=== PATIENT | female | born 1955 | race Caucasian/White ===

== ENCOUNTER 2018-06-30 12:30 | Outpatient (CLI) | payer BC, SELFPAY ==
[2018-06-30 13:13] LABS: Hemoglobin A1C 6.4 % (4.5-6.2)
[2018-06-30 13:52] LABS: ALT 27 U/L (12-78); AST 20 U/L (15-37); Albumin 3.5 g/dL (3.4-5.0); Alkaline Phosphatase 104 U/L (46-116); Anion Gap 7.7 mmol/L (3-11); BUN 15 mg/dL (7-18); Bilirubin, Total 0.5 mg/dL (0.2-1.0); CO2 30.3 mmol/L (21.0-32.0); CREATININE 0.94 mg/dL (0.55-1.02); Calcium 8.6 mg/dL (8.5-10.1); Chloride 104 mmol/L (98-107); Cholesterol 189 mg/dL (50-200); Estimated GFR 59.95 (mL/min/1.73m2); Glucose 105 mg/dL (70-100); HDL Cholesterol 43 mg/dL (40-60); LDL CHOLESTEROL 133 mg/dL (<100); Potassium 3.6 mmol/L (3.5-5.1); Sodium 142 mmol/L (136-145); Total Protein 7.6 g/dL (6.4-8.2); Triglyceride 133 mg/dL (30-150)
== END 2018-06-30 12:50 ==
PROVIDERS: PCP Nurse Practitioner; Visit Provider Nurse Practitioner
DX: I10 Essential (primary) hypertension (principal); R78.5 Finding of other psychotropic drug in blood; R73.01 Impaired fasting glucose
CPT/HCPCS: 36415; 80053; 80061; 83721; 83036

== ENCOUNTER 2019-02-17 01:01 | Outpatient (CLI) | payer MEDICARE, BC, SELFPAY ==
--- NOTE | 2019-02-17 08:00 | ROE_ITS ---
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 Intermittent for several months. No heavy flow. She has been diagnosed with postmenopausal bleeding in the past. Distant hx of D&C @ [facility] by Dr. Rivas GynOnc - benign findings. 2017 Office Endosee procedure: endometrial polyps with benign path. No Rx. Pap Hx. HPV + HR. Findings: Intracavitary filling defect measuring 1.8 x 0.8 cm. Clinical impression is that of an single endometrial polyp. Procedure Description: Patient was evaluated in diagnostic imaging. Transvaginal ultrasound was performed and measurements of the uterus and pelvic structures were obtained. A bivalve speculum was placed in the patient's vagina and cervix cleansed with Betadine. A sonohysterogram catheter was inserted and the balloon at the tip of the device was inflated for her to remain in place. Transvaginal ultrasound was then placed into the vagina and under direct visualization 20 cc of sterile normal saline were instilled into the uterine cavity and a 1.8 x 0.8 cm endometrial polyp was observed of the uterine fundus. No other intracavitary filling defects were appreciated. The transvaginal ultrasound was removed and a single-tooth tenaculum applied to the anterior lip of the cervix. A endometrial biopsy Pipelle was inserted into the uterine cavity through the vagina and all 4 quadrants of the uterine cavity were sequentially curetted. Small amount of tissue was returned. The tenaculum was removed from the anterior lip of the cervix and tenaculum site was noted to be hemostatic all instruments were removed and the patient vagina. She tolerated the procedure well. cc:
--- NOTE | 2019-02-17 14:57 | DI.US_ITS ---
SYMPTOM/DIAGNOSIS: POSTMENOPAUSAL BLEEDING, N95.0 ULTRASOUND SONOHYSTEROGRAM: Sonography was utilized by Dr. Louisa Arita of the Dept of [employer] during the performance of a sonohysterogram. A 1.8 by 0.8 cm. endometrial polyp is noted on the examination. Please refer to the procedure report for complete details.
--- NOTE | 2019-02-17 15:30 | ENDOMET_PTH ---
PATIENT: Varsha Lizama LOC: [facility] U#:[id number] AGE/SX: 64/F ROOM: RE02/17/[address]: Louisa Arita : 1955 BED: DIS: 02/17/2019 SPEC #: [id number] RECD: 02/17/19 18:10 STATUS: VIVIANA REQ #: [id number] THOMAS: 02/17/19 15:[address]: Louisa Arita DEPT: Surgical Specimen RECD BY: Angely Balderas ENTERED: 02/17/19 18:11 SP TYPE: Endomet OT DR: Jaclyn Tejeda APRN Tissues: 1 - ENDOMETRIUM BX/ESTEFANIAETTE Procedures: GROSS AND MICRO LEVEL 4 Comments: [id number]
== END 2019-02-17 01:21 ==
PROVIDERS: PCP Nurse Practitioner; Visit Provider Obstetrics & Gynecology Gynecology
DX: N95.0 Postmenopausal bleeding (principal); N84.0 Polyp of corpus uteri
CPT/HCPCS: 58100; 76830; 58340; 76998; 88305; 76831; 76942

== ENCOUNTER 2019-03-27 10:21 | Outpatient (CLI) | payer MEDICARE, BC, SELFPAY ==
[2019-03-27 11:22] LABS: HCT 42.6 % (36.0-46.0); Mean Corp. HGB Concentration 32.9 g/dL (32.0-36.0); Mean Corpuscular Hemoglobin 30.4 pg (27.0-33.0); Mean Corpuscular Volume 92.4 fL (80-95); Mean Platelet Volume 9.6 fL (8.0-11.0); Platelet Count 243 x1000/uL (130-400); RBC 4.61 m/cumm (4.00-5.20); RBC Distribution Width 13.6 % (11.7-14.6); White Blood Cell Count 5.07 k/cumm (4.4-10.8)
[2019-03-27 12:02] LABS: ALT 29 U/L (12-78); AST 17 U/L (15-37); Albumin 3.6 g/dL (3.4-5.0); Alkaline Phosphatase 102 U/L (46-116); Anion Gap 8.4 mmol/L (3-11); BUN 17 mg/dL (7-18); Bilirubin, Total 0.4 mg/dL (0.2-1.0); CO2 30.6 mmol/L (21.0-32.0); CREATININE 1.01 mg/dL (0.55-1.02); Calcium 9.1 mg/dL (8.5-10.1); Calculated LDL 131; Chloride 103 mmol/L (98-107); Cholesterol 195 mg/dL (50-200); Estimated GFR 55.01 (mL/min/1.73m2); Glucose 97 mg/dL (70-100); HDL Cholesterol 41 mg/dL (40-60); Potassium 3.7 mmol/L (3.5-5.1); Sodium 142 mmol/L (136-145); Total Protein 7.7 g/dL (6.4-8.2); Triglyceride 119 mg/dL (30-150)
== END 2019-03-27 10:41 ==
PROVIDERS: PCP Nurse Practitioner; Visit Provider Nurse Practitioner
DX: E11.9 Type 2 diabetes mellitus without complications (principal); E78.5 Hyperlipidemia, unspecified; I10 Essential (primary) hypertension
CPT/HCPCS: 36415; 80053; 80061; 83721; 85027; 82043; 82570

== ENCOUNTER 2019-08-12 12:43 | Outpatient (CLI) | payer MEDICARE, BC, SELFPAY ==
[2019-08-12 14:21] LABS: Anion Gap 8.7 mmol/L (3-11); BUN 20 mg/dL (7-18); CO2 31.3 mmol/L (21.0-32.0); CREATININE 0.87 mg/dL (0.55-1.02); Calcium 9.5 mg/dL (8.5-10.1); Chloride 103 mmol/L (98-107); Glucose 83 mg/dL (70-100); Potassium 3.6 mmol/L (3.5-5.1); Sodium 143 mmol/L (136-145)
== END 2019-08-12 13:03 ==
PROVIDERS: PCP Nurse Practitioner; Visit Provider Nurse Practitioner
DX: I10 Essential (primary) hypertension (principal)
CPT/HCPCS: 36415; 80048

== ENCOUNTER 2019-12-28 09:28 | Outpatient (CLI) | payer MEDICARE, BC, SELFPAY ==
--- NOTE | 2019-12-28 08:30 | DI.RAD_ITS ---
EXAM: XR KNEE LT 3V AP,LAT,ALONSO CLINICAL HISTORY: KNEE PAIN. TECHNIQUE: 2D digital imaging was performed. COMPARISON: No exams were available for comparison FINDINGS: BONES: No acute fracture is present. No bony destructive lesion is seen. JOINTS: The knee is normally aligned. No joint effusion is seen. Mild periarticular spurring is seen at the posterior patella and the medial femoral tibial joint space. There is moderate narrowing of t he medial femoral tibial joint. SOFT TISSUE: Normal. IMPRESSION: Mild degenerative changes of the left knee. DATA REPOSITORY: RADIATION DOSE DELIVERED:
== END 2019-12-28 09:48 ==
PROVIDERS: PCP Nurse Practitioner; Referring Provider Nurse Practitioner; Visit Provider Student in an Organized Health Care Education/Training Program
DX: M25.562 Pain in left knee (principal); M17.12 Unilateral primary osteoarthritis, left knee; I10 Essential (primary) hypertension
CPT/HCPCS: 20610; 73562; 99214; J1040

== ENCOUNTER 2020-05-04 02:25 | Outpatient (CLI) | payer MEDICARE, BC, SELFPAY ==
--- NOTE | 2020-05-04 08:45 | DI.MAMMO_ITS ---
EXAM: MG MAMMO SCREENING CLINICAL HISTORY: screening,Z12.39 TECHNIQUE: Bilateral full field digital CC and MLO mammographic images were obtained with 3D tomosyn thesis and utilizing computer aided detection (CAD). COMPARISON: Available for comparison. FINDINGS: Masses/Architectural Distortion: None seen. Microcalcifications: No suspicious pleomorphic-type are seen. Skin Thickening/Nipple Retraction: None. IMPRESSION: 1. No significant interval change with no specific features of malignancy noted. 2. Unless there is more urgent need, screening mammography is recommended, as per [place] [employer] guidelines. BI-RADS Category 1 - Negative Breast Density - Category B - Scattered areas of fibroglandular density A negative radiographic report should not delay biopsy if a dominant or clinically suspicious mass is present. Up to ten percent of cancers are not identified on mammography. A negative report may reinforce clinical impression. Adenosis and dense breasts may obscure an underlying neoplasm. False positive reports average 6 to 10%. Patient will receive a letter notifying them of these results.
== END 2020-05-04 02:45 ==
PROVIDERS: PCP Nurse Practitioner; Visit Provider Nurse Practitioner
DX: Z12.31 Encounter for screening mammogram for malignant neoplasm of breast (principal)
CPT/HCPCS: 77063; 77067

== ENCOUNTER → 2020-05-06 09:28 | Outpatient (BNVA) | payer MEDICARE, BC, SELFPAY | PROVIDERS: PCP Nurse Practitioner; Referring Provider Nurse Practitioner; Visit Provider Student in an Organized Health Care Education/Training Program | DX: M17.12 Unilateral primary osteoarthritis, left knee; M25.562 Pain in left knee; Z98.890 Other specified postprocedural states; I10 Essential (primary) hypertension | CPT/HCPCS: 99213 ==

== ENCOUNTER 2020-08-11 17:31 | Outpatient (REF) | payer MEDICARE, BC, SELFPAY ==
--- NOTE | 2020-08-11 15:00 | ENDOMET_PTH ---
PATIENT: Varsha Lizama LOC: [facility] U#:[id number] AGE/SX: 65/F ROOM: RE08/11/[address]: Louisa Arita : 1955 BED: DIS: 08/11/2020 SPEC #: [id number] RECD: 08/11/20 17:39 STATUS: VIVIANA REQ #: [id number] THOMAS: 08/11/20 15:[address]: Louisa Arita DEPT: Surgical Specimen RECD BY: Angely Balderas ENTERED: 08/11/20 17:40 SP TYPE: Endomet OTHR DR: Jaclyn Tejeda APRN Tissues: 1 - ENDOMETRIUM BX/CURRETTE Procedures: GROSS AND MICRO LEVEL 4 Comments: [id number] ([facility]#)
== END 2020-08-11 17:51 ==
LOC: LBN 17:31
PROVIDERS: PCP Nurse Practitioner; Visit Provider Obstetrics & Gynecology Gynecology
DX: N95.0 Postmenopausal bleeding (principal); N85.01 Benign endometrial hyperplasia
CPT/HCPCS: 88305

== ENCOUNTER 2020-08-23 02:31 | Outpatient (CLI) | payer MEDICARE, BC, SELFPAY ==
[2020-08-23 10:08] LABS: ALT 26 U/L (14-59); AST 17 U/L (15-37); Albumin 3.9 g/dL (3.4-5.0); Alkaline Phosphatase 106 U/L (46-116); Anion Gap 6.3 mmol/L (3-11); BUN 21 mg/dL (7-18); Bilirubin, Total 0.5 mg/dL (0.2-1.0); CO2 33.7 mmol/L (21.0-32.0); Calcium 8.9 mg/dL (8.5-10.1); Calculated LDL 134 mg/dL (<100); Chloride 101 mmol/L (98-107); Cholesterol 206 mg/dL (<200); Glucose 123 mg/dL (74-106); HDL Cholesterol 47 mg/dL (40-60); Potassium 3.2 mmol/L (3.5-5.1); Sodium 141 mmol/L (136-145); Total Protein 7.9 g/dL (6.4-8.2); Triglyceride 127 mg/dL (<150)
== END 2020-08-23 02:51 ==
PROVIDERS: PCP Nurse Practitioner; Visit Provider Nurse Practitioner
DX: E78.5 Hyperlipidemia, unspecified (principal); I10 Essential (primary) hypertension
CPT/HCPCS: 36415; 80053; 80061

== ENCOUNTER 2020-10-25 02:22 | Outpatient (CLI) | payer MEDICARE, BC, SELFPAY ==
[2020-10-25 09:38] LABS: Hemoglobin A1C 6.6 % (<5.7)
[2020-10-25 09:59] LABS: Potassium 3.9 mmol/L (3.5-5.1)
== END 2020-10-25 02:42 ==
PROVIDERS: PCP Nurse Practitioner; Visit Provider Nurse Practitioner
DX: R73.03 Prediabetes (principal); E87.6 Hypokalemia
CPT/HCPCS: 36415; 83036; 84132

== ENCOUNTER 2021-01-30 02:43 | Outpatient (CLI) | payer MEDICARE, BC, SELFPAY ==
[2021-01-30 11:14] LABS: HCT 42.5 % (36.0-46.0); HGB 13.9 g/dL (11.2-15.7); MCH 29.4 pg (27.0-33.0); MCHC 32.7 % (32.0-36.0); MPV 9.6 fL (8.0-11.0); Platelet Count 260 10^3/uL (130-400); RBC 4.72 10^6/uL (3.93-5.22); RDW 12.9 % (11.7-14.6); RDW-SD 42.6 fL; WBC 5.79 10^3/uL (4.4-10.8)
[2021-01-30 11:31] LABS: Source Nasal/Nares
[2021-01-30 11:49] LABS: ALT 34 U/L (14-59); AST 21 U/L (15-37); Albumin 3.9 g/dL (3.4-5.0); Alkaline Phosphatase 109 U/L (46-116); Anion Gap 7.8 mmol/L (3-11); BUN 24 mg/dL (7-18); Bilirubin, Total 0.4 mg/dL (0.2-1.0); CO2 31.2 mmol/L (21.0-32.0); Calcium 9.7 mg/dL (8.5-10.1); Chloride 103 mmol/L (98-107); Glucose 132 mg/dL (74-106); Potassium 3.5 mmol/L (3.5-5.1); Sodium 142 mmol/L (136-145); Total Protein 8.1 g/dL (6.4-8.2)
[2021-01-30 18:19] LABS: COVID-19 PCR Negative (Negative)
== END 2021-01-30 02:44 | disposition home or self-care (01) ==
LOC: LBO 02:43
PROVIDERS: PCP Nurse Practitioner; Visit Provider Obstetrics & Gynecology Gynecology
DX: N95.0 Postmenopausal bleeding (principal); Z20.822 Contact with and (suspected) exposure to COVID-19; Z01.818 Encounter for other preprocedural examination; Z01.812 Encounter for preprocedural laboratory examination
CPT/HCPCS: 36415; 80053; 85027; 86850; 86900; 86901; 87635

== ENCOUNTER 2021-02-01 12:27 | Observation (INO) | payer MEDICARE, BC, SELFPAY ==
[2021-02-01] VITALS (19 sets, daily range): BP systolic 105–140; BP diastolic 40–79; PULSE 50–85; RESP 11–24; TEMP 36.2–36.6; O2SAT 91–99
[2021-02-01] MEDS: Lactated Ringers 1,000 ML 125 ML IV ×3 (07:58→22:22)
--- NOTE | 2021-02-01 09:14 | DSU.FORM ---
02/01/21 Patient belongings pocketbook, phone, clothing, shoes, watch, earrings, glasses labeled and in bags. Patient CPAP labeled and checked by RT. All patient belongings brought to floor by VP OF MARKETING.
[2021-02-01] MEDS: ceFAZolin 2 GM/50 ML BAG IVPB (09:28)
--- NOTE | 2021-02-01 11:29 | UTER_PTH ---
PATIENT: Varsha Lizama LOC: [facility] U#:[id number] AGE/SX: 66/F ROOM: OBS.306 RE02/01/[address]: Louisa Arita : 1955 BED: A DIS: 02/02/2021 SPEC #: [id number] RECD: 02/01/21 12:59 STATUS: VIVIANA REQ #: [id number] THOMAS: 02/01/21 11:[address]: Louisa Arita DEPT: Surgical Specimen RECD BY: Angely Balderas ENTERED: 02/01/21 13:00 SP TYPE: UTER OTHR DR: Jaclyn Tejeda APRN Tissues: 1 - UTERUS W OR W/O OVARIES(NOT TUMOR/PROLAPSE) Procedures: GROSS AND MICRO LEVEL 5 DECALCIFICATION Comments: [id number]
[2021-02-01] MEDS: Cellulose,Oxidized 4X8 1 PACKET MC (11:57)
[2021-02-01] MEDS: Bupivacaine 0.25% Pres-Free 30 ML VIAL (12:19)
[2021-02-01] MEDS: HYDROmorphone 2 MG/ML VIAL IVP ×3 (13:42→14:08)
--- NOTE | 2021-02-01 16:08 | NUR.NOTE ---
Pt brought to Center via bed, on room air. IV running with LR at 125 mL/hr. Pt drowsy but awake and communicative. Vitals WNL. Nursing Note:
--- NOTE | 2021-02-01 17:43 | RESPIRATORY ---
RT checked out pt's device, looks to be in good, clean working condition. Pt's own DreamStation Auto-titrate CPAP Max 16 / Min 11 cmH2O FiO2: 21% Nasal Mask: Small DME: [facility]
[2021-02-01] MEDS: Ketorolac 30 MG/ML VIAL IVP ×2 (18:19→23:48)
[2021-02-01] MEDS: Docusate Sodium 100 MG CAP PO (20:14)
[2021-02-01] MEDS: Normal Saline Flush 10 ML SYR IV (23:48)
[2021-02-02] MEDS: Lactated Ringers 1,000 ML 125 ML IV (05:40)
[2021-02-02] MEDS: Ketorolac 30 MG/ML VIAL IVP (05:41)
[2021-02-02] MEDS: Normal Saline Flush 10 ML SYR IV (05:41)
[2021-02-02 05:50] VITALS: BP 116/74; PULSE 55; RESP 14; TEMP 36.5; O2SAT 96
[2021-02-02 07:09] LABS: HCT 35.5 % (36.0-46.0); HGB 11.6 g/dL (11.2-15.7); MCH 29.5 pg (27.0-33.0); MCHC 32.7 % (32.0-36.0); MCV 90.3 fL (80-95); MPV 9.7 fL (8.0-11.0); Platelet Count 219 10^3/uL (130-400); RBC 3.93 10^6/uL (3.93-5.22); RDW 12.8 % (11.7-14.6); RDW-SD 42.4 fL; WBC 11.52 10^3/uL (4.4-10.8)
[2021-02-02 07:18] LABS: BUN 26 mg/dL (7-18); CREATININE 1.1 mg/dL (0.55-1.02); Calcium 8.4 mg/dL (8.5-10.1); Chloride 103 mmol/L (98-107); Estimated GFR 49.54 (mL/min/1.73m2); Glucose 148 mg/dL (74-106); Potassium 3.2 mmol/L (3.5-5.1); Sodium 139 mmol/L (136-145)
[2021-02-02 08:00] VITALS: BP 116/58; PULSE 57; RESP 16; TEMP 36.8; O2SAT 97
[2021-02-02] MEDS: Omeprazole 20 MG CAPCR PO (08:01)
[2021-02-02] MEDS: Docusate Sodium 100 MG CAP PO (08:13)
[2021-02-02] MEDS: Losartan 50 MG TAB 100 MG PO (08:14)
[2021-02-02] MEDS: Glucosamine/Chondroitin CAP 1 CAP PO (08:16)
[2021-02-02] MEDS: Atenolol 50 MG TAB PO (08:17)
--- NOTE | 2021-02-02 11:33 | DSE_ITS ---
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 At her last visit on 08/11/21 an endometrial bx was performed and the pathology returned with simple hyperplasia w/o atypia. Decision was made to proceed with definitive therapy. She was admitted the morning of surgery underwent the above-stated procedure without complications and was discharged home on postop day #1. She was voiding spontaneously, tolerating a regular diet and her pain was well controlled with NSAIDs at the time of discharge. She was given discharge instructions regarding activity level and the plan for follow-up in the office in approximately 2 weeks to review pathology and inspect incisions. Final pathology is currently pending. Home Meds and New Rx's Prescriptions: No Action turmeric 400 mg capsule 400 mg PO DAILY RF: 0 sumatriptan succinate 50 mg tablet 50 mg PO DAILY PRN (Reason: migraine headache) Qty: 9 RF: 12 multivitamin [Daily Multi-Vitamin] 1 EACH tablet 1 ea PO DIRECTED RF: 0 calcium-vitamin D3-vitamin K 1 EACH tablet,chewable 1 ea PO DAILY RF: 0 glucosam-chondr msm6-manganese 1 EACH capsule 1 ea PO DAILY RF: 0 ibuprofen 600 mg tablet 600 mg PO Q6H PRNRF: 0 indapamide 2.5 mg tablet 5 mg PO QAM Qty: 180 RF: 3 atenolol 50 mg tablet 50 mg PO DAILY Qty: 90 RF: 3 omeprazole 20 mg capsule,delayed release(DR/EC) 20 mg PO DAILY Qty: 90 RF: 3 losartan 100 mg tablet 100 mg PO DAILY Qty: 90 RF: 3 aspirin [Aspir-81] 81 mg Tablet,Delayed Release (Dr/Ec) 81 mg PO DAILY RF: 0 Discharge Instructions Stand Alone Forms: DSU Post Gynecology Surgery Activity:: Activity as Tolerated Equipment/Supplies:: No Equipment Needed Diet:: As Tolerated Discharge Orders Discharge Orders: Discharge Order (Routine); Ordered 02/02/21 Ordered By: Louisa Arita DS: Summary Time Spent with Patient providing and/or coordinating discharge services: Less than 30 minutes Status at Discharge Functional status at discharge: independent ambulation Overall status at discharge: patient is progressing back to baseline Mental Status: mental status grossly normal Speech and Movement: speech and movement normal Mood: congruent mood Affect: normal affect Exam Narrative Exam Narrative: Comfortable overnight. Used her CPAP to treat her chronic sleep apnea. Feels comfortable going home. No desire for medications other than NSAIDs. Minimal output on peripads. Const General: cooperative Nutritional Appearance: obese Orientation: alert, awake and oriented x3 Resp Effort & Inspection: normal respiratory effort Auscultation: clear to auscultation bilaterally Cardio Rate: regular rate Rhythm: regular rhythm GI Inspection: no abdominal wall ecchymosis and incision (Trocar sites clean dry and intact) Palpation: soft and no masses General: deferred Skin General skin exam: no rashes or lesions noted Extrem General: normal to inspection Psych Appearance: grossly normal Mental Status: mental status grossly normal Speech and Movement: speech and movement normal Mood: congruent mood Affect: normal affect DS: Data Vitals/I&O Vitals and I&O: Vital Signs Temperature 98.2 F 02/02/21 08:00 Temperature Source Oral 02/02/21 08:00 Pulse 57 L 02/02/21 08:00 Pulse Rhythm Regular 02/02/21 08:00 Respiratory Rate 16 02/02/21 08:00 Respiratory Effort Non-Labored 02/02/21 08:00 Respiratory Depth Normal 02/02/21 08:00 Respiratory Pattern Normal 02/02/21 08:00 Blood Pressure 116/58 L 02/02/21 08:00 Pulse Oximetry 97 02/02/21 08:00 Respiratory End-tidal CO2 51 02/01/21 14:17 Oxygen Delivery Method Room Air 02/02/21 08:00 Oxygen Flow Rate 0 02/02/21 08:00 Fraction of Inspired Oxygen (FIO2) 21 02/01/21 17:40 Pain Level 4 02/02/21 05:50 Comment 02/02/21 05:50 Intake & Output 02/01/21 02/01/21 02/02/21 11:59 23:59 11:59 Intake Total 50 / 2707.917 2657.917 / 2707.917 1212.5 / 1212.5 Output Total 900 / 900 700 / 700 Balance 50 / 1359.569 4332.917 / 1807.917 512.5 / 512.5 Weight 247 lb 9.6 oz Intake: IV 50 / 2056.917 2007.917 / 2056.917 912.5 / 912.5 Oral 650 / 650 300 / 300 Output: Urine 900 / 900 700 / 700 Other: Urine Color Pale Yellow Green Yellow Green Urine Appearance Clear Clear Urine Odor None None Comment 1st void after babcock removal. Emesis Description None Voiding Methods Indwelling Catheter Indwelling Catheter Data Completed and Pending Labs on day of discharge: Labs from last 24 hours 02/02/21 02/02/21 06:50 06:50 WBC 11.52 H RBC 3.93 Hgb 11.6 D Hct 35.5 L MCV 90.3 MCH 29.5 MCHC 32.7 RDW 12.8 Plt Count 219 MPV 9.7 Sodium 139 Potassium 3.2 L Chloride 103 Carbon Dioxide 30.0 Anion Gap 6.0 BUN 26 H Creatinine 1.1 H Estimated GFR/1.73 m2 49.54 Glucose 148 H Calcium 8.4 L PFSH Medical History Achrochordon Left lateral neck. 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 10/20/18 Dr Wright Kidney stone (03/26/12) Migraine, unspecified, not intractable, without status migrainosus (05/13/13) Obstructive sleep apnea (adult) (pediatric) (03/04/13) Dr. Rebollar CPAP Other and unspecified hyperlipidemia (05/13/13) PCEq risk 6% Post-menopausal bleeding (08/30/17) hsitory of PMB, EM polyps, s/p D&C at [facility] by Dr Menendez. 2017 EMBx with KK. Benign. Surgical History (Updated 02/02/21 @ 11:34 by Louisa Arita MD) Colonoscopy - MAC (05/13/17) History of arthroscopic knee surgery History of surgery D&C S/P BSO (status post bilateral salpingo-oophorectomy) S/P laparoscopic assisted vaginal hysterectomy (LAVH) Family History Mother , heart failure at age 83. Heart disease Neoplasm kidney Father No problems noted. Sister No problems noted. Brother No problems noted. Social History Smoking/Tobacco Use Status: Never Smoking risk assessment performed?: Yes Alcohol Intake: current Alcohol Intake frequency: a few times a month Alcohol type: beer and wine Drug use: Never Substance use type: does not use Caregiver/Support person: Yes (in laws and her mom ) Household members: spouse and other Details: [employer]ser[employer] Housing: house Number of Children: 3 Communication Needs: Corrective Lenses current occupation: works departmental buyer - early education Current gender identity: female What type of physical activity do you participate in: bicycling Duration: 30-45 minutes/day Frequency: daily Seatbelt use: always Helmet use: Yes Drive intox or ride w/intox local company intermodal truck driver: No Water heater temp set <120 deg: Yes Working smoke detector in home: Yes Fire extinguisher in home: Yes Carbon monox detector in home: Yes Firearms in home: Yes Firearms unloaded and locked: Yes Do you feel safe at home: Yes Do you feel safe in your relationship?: Yes Victim of physical abuse: No Victim of emotional abuse: No Victim of sexual abuse: No History History 3 Para 2 Hx # Term Pregnancies 2 Multiple births Hx # Pregnancies Ectopic pregnancies AB induced Hx Number of Living Children 2 AB spontaneous
--- NOTE | 2021-02-02 12:13 | ROE_ITS ---
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 At her last visit on 08/11/21 an endometrial bx was performed and the pathology returned with simple hyperplasia w/o atypia. It was after that bx that I recommended definitive Rx in the form of a LAVH, BSO with bladder cystoscopy. Findings: Normal adnexa bilaterally cluster of calcifications in proximity to the insertion of the left uterine vessels normal upper abdomen. Procedure Description: Patient was taken to the operating room where she was placed in the dorsal supine position and general endotracheal anesthesia was administered without difficulty. She was then placed in the dorsal lithotomy position in [facility] stirrups with SCDs in place. After being prepped and draped in the usual sterile fashion a surgical timeout was performed. Flynn catheter was placed to gravity drainage. A bivalve speculum was placed in the vagina the anterior lip of the cervix was grasped with a single-tooth tenaculum. A Katheryn uterine manipulator was successfully inserted into the uterine cavity, the catheter bulb inflated with 8 cc of normal saline and the device left in place. Attention was then turned to the patient's abdomen. She received 2 g of Ancef prior to skin incision. The umbilical fold was infiltrated with quarter percent Marcaine without epinephrine. A scalpel was then used to make a 12mm vertical skin incision in the umbilical fold. Two penetrating towel clips were used to tent up the skin and through the periumbilical incision a Veres needle was introduced into the abdomen with carbon dioxide as the distention gas. Intra-abdominal placement confirmed by a drop in the intra-abdominal pressure. Once a pneumoperitoneum was established a 12 mm Visiport was placed under direct visualization and intra-abdominal placement confirmed by use of the laparoscope. Patient was then placed in Trendelenburg position. At two sites approximately 6 cm diagonally from the umbilical incision the skin was infiltrated with quarter percent Marcaine without epinephrine, incised with a scalpel and two 5 mm lower ports were placed under direct visualization. After careful inspection of the pelvis a LigaSure electrocautery device was used to clamp, cauterize and transect the suspensory ligament of the left ovary. The left round ligament and broad ligament were then clamped, cauterized and transected to the level of the lower uterine segment. We are unable to detach the area of calcification from the serosal surface of the uterus. The vesico- uterine peritoneum was incised and the the from the lower uterine segment and mobilized off of the body of the cervix. The pedicles of the suspensory, round and broad ligaments were inspected and noted to be hemostatic. On the contralateral side the right suspensory, round, and broad ligament were sequentially clamped, cauterized and transected using the Ligasure device to the level of the insertion of the uterine artery. The remaining the vesicouterine peritoneum was incised across the lower uterine segment and the bladder flap created using the Ligasure device and gently counter traction. All pedicles were inspected and noted to be hemostatic. Decision was made to proceed with the vaginal portion of the case. Laparoscopic instruments were removed from the ports , the pneumoperitoneum was reduced, and the was abdomen covered with sterile drape. A weighted vaginal speculum was placed in the vagina and the anterior and posterior lips of the cervix were grasped with Layton clamps. A solution of 1% lidocaine with dilute epinephrine was used to infiltrate the body of the cervix in a circumferential fashion followed by an incision of the cervical epithelium with Bovie electrocautery. The posterior cul-de-sac was entered sharply and through the this incision a right angle retractor was placed. The left and right uterosacral ligament complexes were identified clamped, transected and suture-ligated and the suture held long. The vesicouterine fascia was identified and the anterior cul-de-sac bluntly sharply. Through this incision a curved right angled retractor was inserted and used to retract the bladder away from the operative field. The remaining right and left broad ligament attatchments were sequentially clamped, cauterized, and transected and the specimen was passed off of the operative field. The vaginal cuff was reapproximated in a vertical fashion with a running suture of 0 Vicryl. Instruments removed from the vagina and attention was again turned to the abdomen where a pneumoperitoneum was reestablished and the pelvis inspected using the laparoscope. The vaginal cuff was intact and was hemostatic as were the round ligament and broad ligament pedicles. The instruments were removed from the port sites, the pneumoperitoneum reduced and the ports removed. The fascia of the periumbilical skin incision was closed with interrupted suture of 0 Vicryl. The skin of all port site incisions were reapproximated with a subcuticular closure of 4-0 Vicry and and covered with skin glue. A cystoscopy was performed with both ureteral jets patent with a brisk reflux of urine from each. The bladder was inspected and no evidence of sutures were present. Flynn catheter was reinserted to gravity drainage and the patient was placed in the dorsal supine position, awakened, extubated, and transported recovery area in stable condition. All sponge lap needle counts correct x2.
== END 2021-02-02 12:10 | disposition home or self-care (01) ==
LOC: OBS 15:59
PROVIDERS: Admitting Provider Obstetrics & Gynecology Gynecology; PCP Nurse Practitioner; Visit Provider Obstetrics & Gynecology Gynecology
PROC: 0UT9FZZ Resection of Uterus, Via Natural or Artificial Opening With Percutaneous Endoscopic Assistance (ICD-10-PCS; CPT 58552; principal; 2021-02-01 08:45)
DX: N95.0 Postmenopausal bleeding (principal); N84.0 Polyp of corpus uteri; N85.01 Benign endometrial hyperplasia; D39.0 Neoplasm of uncertain behavior of uterus; N83.8 Other noninflammatory disorders of ovary, fallopian tube and broad ligament; I10 Essential (primary) hypertension; E78.00 Pure hypercholesterolemia, unspecified; K21.9 Gastro-esophageal reflux disease without esophagitis; G47.33 Obstructive sleep apnea (adult) (pediatric)
CPT/HCPCS: 58552; 52000; 36415; 80048; 85027; NC; 88307; 88311; J0690; J1100; J1885; J2001; J2250; J2405; J2704; J3010

== ENCOUNTER 2021-09-27 01:37 | Outpatient (CLI) | payer MEDICARE, BC, SELFPAY ==
[2021-09-27 11:00] LABS: Anion Gap 9.4 mmol/L (3-11); BUN 19 mg/dL (7-18); CO2 28.6 mmol/L (21.0-32.0); CREATININE 0.9 mg/dL (0.55-1.02); Calcium 9.1 mg/dL (8.5-10.1); Calculated LDL 126 mg/dL (<100); Chloride 101 mmol/L (98-107); Cholesterol 197 mg/dL (<200); Glucose 161 mg/dL (74-106); HDL Cholesterol 46 mg/dL (40-60); Potassium 3.6 mmol/L (3.5-5.1); Sodium 139 mmol/L (136-145); Triglyceride 125 mg/dL (<150)
== END 2021-09-27 01:38 | disposition home or self-care (01) ==
LOC: LBO 01:37
PROVIDERS: PCP Nurse Practitioner; Visit Provider Nurse Practitioner
DX: E78.5 Hyperlipidemia, unspecified (principal); R79.89 Other specified abnormal findings of blood chemistry
CPT/HCPCS: 36415; 80048; 80061

== ENCOUNTER 2022-03-23 11:35 | Outpatient (CLI) | payer MEDICARE, SELFPAY ==
--- NOTE | 2022-03-23 11:00 | DI.RAD_ITS ---
Exam(s) XR KNEE LT 2V AP,LAT XR STANDING ALIGNMENT EXAM: XR STANDING ALIGNMENT and XR knee LT two view CLINICAL HISTORY: eval alignment for knee replacement. TECHNIQUE: 2D digital imaging was performed. Six views were obtained. COMPARISON: CR XR KNEE LT 3V AP,LAT,ALONSO from 12/28/2019 FINDINGS: BONES: No acute fracture is present. No bony destructive lesion is seen. In the left knee, there is m oderate narrowing of the medial femoral tibial joint space. Mild tricompartment periarticular spurri ng is present. No joint effusion is seen. The hips are well maintained. The right hip shows modera te narrowing and spurring in the medial femoral tibial joint. The ankles are well maintained. No si gnificant leg length discrepancy is present. SOFT TISSUE: Normal. IMPRESSION: Osteoarthritis of the knees, left greater than right. DATA REPOSITORY: RADIATION DOSE DELIVERED:
== END 2022-03-23 11:36 | disposition home or self-care (01) ==
LOC: DIORS 11:35
PROVIDERS: PCP Nurse Practitioner; Referring Provider Nurse Practitioner; Visit Provider Student in an Organized Health Care Education/Training Program
DX: M17.12 Unilateral primary osteoarthritis, left knee (principal)
CPT/HCPCS: 99214; 73560; 77073

== ENCOUNTER 2022-04-10 15:59 | Outpatient (CLI) | payer MEDICARE, SELFPAY ==
--- NOTE | 2022-04-10 15:00 | DI.RAD_ITS ---
Exam(s) XR KNEE LT 1V EXAM: XR KNEE LT 1V CLINICAL HISTORY: LEFT KNEE F/U. TECHNIQUE: 2D digital imaging was performed of the left knee. One images were obtained. Merchant, views were obtained. COMPARISON: CR XR KNEE LT 2V AP,LAT from 03/23/2022 FINDINGS: BONES: There is normal alignment of the patella on the single view. Mild spurring is seen about the patellofemoral joint. No bony destructive lesion is seen. SOFT TISSUE: Normal. IMPRESSION: Limited examination of the knee shows no acute abnormality. DATA REPOSITORY: RADIATION DOSE DELIVERED:
== END 2022-04-10 16:00 | disposition home or self-care (01) ==
LOC: DIORS 15:59
PROVIDERS: PCP Nurse Practitioner; Visit Provider Student in an Organized Health Care Education/Training Program
DX: M17.12 Unilateral primary osteoarthritis, left knee (principal)
CPT/HCPCS: 99214; 73560

== ENCOUNTER 2022-04-26 04:07 | Outpatient (CLI) | payer MEDICARE, SELFPAY ==
--- NOTE | 2022-04-26 11:00 | NS.NUTBLAN_ITS ---
Varsha was referred for diabetes self management education. Dx with Dm in March 2022 with A1C of 9.3% (04/11/22). Has started with 500 mg metformin BID. c/o stomach discomfort and loose stools but tolerating metformin. Diet Recall: Callahan with eggs, Lunch: left overs, Dinner: Pizza and salad . snacks at nights: crackers, fruit, granola bar 5'6 245 lbs BMI 40 down 4 lbs in last month Exercise: minimal- needs knee replacement once blood sugars in control. Session today focused on how to follow a meal plan that provides a max intake of 100 grams of carbohdyrates daily. Provided meal plans and strategies for increasing portions of lean meat and non starchy vegetables. Suspect, Varsha will be able to lose 4-5 lbs per month by limiting carb intake. Goal weight loss 10% in next 90 days. Follow up scheduled for 05/29/22 at 11 am
== END 2022-04-26 04:08 | disposition home or self-care (01) ==
LOC: DS 04:07
PROVIDERS: PCP Nurse Practitioner; Visit Provider Dietitian, Registered
DX: E11.9 Type 2 diabetes mellitus without complications (principal); Z79.84 Long term (current) use of oral hypoglycemic drugs; Z71.3 Dietary counseling and surveillance
CPT/HCPCS: 97802

== ENCOUNTER 2022-05-29 02:02 | Outpatient (CLI) | payer MEDICARE, SELFPAY ==
--- NOTE | 2022-05-29 11:00 | NS.NUTBLAN_ITS ---
Varsha returns for diabetes self management education. Wtt: 244 lbs down 1 lbs in last 4 weeks. Meds: 500 mg metformin BID Diet Recall: 2 slices low carb bread, activa yogurt, peach. Typically skips lunch: Dinner last night- 3 slices of pizza with side salad. Exercise: started PT again. Varsha reports frustration with lack of weight loss despite keeping carb intake to about 40 g per meal. She does order out 1-2 times weekly. Reviewed ideal meal options for weight loss and glycemic management. She brings in her glucose meter and we spent most of the session learning how to check blood sugars. Did receive wrong lancets- will need to get replaced to be able to use finger prick device. Encouraged Varsha to daily check fasting blood sugars (goal 90-150 mg/dl) and 1 hour after eating dinner (goal less than 180 mg/dl). Provided blood sugar monitoring booklet. In view of lack of weight loss, would recommend adding Trulicity or Ozempic. Varsha to follow up with PCP and ortho in next month. Hoping to schedule knee surgery once blood sugars in good range. No follow up scheduled at this time.
== END 2022-05-29 02:03 | disposition home or self-care (01) ==
LOC: DS 02:02
PROVIDERS: PCP Nurse Practitioner; Visit Provider Dietitian, Registered
DX: E11.9 Type 2 diabetes mellitus without complications (principal); Z79.84 Long term (current) use of oral hypoglycemic drugs; Z71.3 Dietary counseling and surveillance
CPT/HCPCS: 97803

== ENCOUNTER 2022-06-29 01:30 | Outpatient (CLI) | payer MEDICARE, SELFPAY ==
[2022-06-29 11:15] LABS: Anion Gap 9.3 mmol/L (3-11); BUN 25 mg/dL (7-18); CO2 30.7 mmol/L (21.0-32.0); CREATININE 1.1 mg/dL (0.55-1.02); Calcium 9.2 mg/dL (8.5-10.1); Chloride 102 mmol/L (98-107); Estimated GFR 54.73 (mL/min/1.73m2); Glucose 125 mg/dL (74-106); Potassium 3.2 mmol/L (3.5-5.1); Sodium 142 mmol/L (136-145)
== END 2022-06-29 01:31 | disposition home or self-care (01) ==
LOC: LBO 01:30
PROVIDERS: PCP Nurse Practitioner; Visit Provider Nurse Practitioner
DX: E11.9 Type 2 diabetes mellitus without complications (principal)
CPT/HCPCS: 36415; 80048

== ENCOUNTER → 2022-07-11 11:00 | Outpatient (BNVA) | payer MEDICARE, SELFPAY | PROVIDERS: PCP Nurse Practitioner; Referring Provider Nurse Practitioner; Visit Provider Student in an Organized Health Care Education/Training Program | DX: R69 Illness, unspecified (principal) | CPT/HCPCS: 99214 ==

== ENCOUNTER 2022-08-02 06:07 | Day surgery (SDC) | payer MEDICARE, SELFPAY ==
--- NOTE | 2022-08-01 17:41 | W.ANESPRE ---
General Info Date of Service Date Performed: 08/02/22 Height: 5 ft 6 in Weight: 105.233 kg Body Mass Index (BMI): 37.4 Surgical Procedure: Operation Date: 08/02/22 08:00 Proposed Procedure Side Surgeon p Knee Medial Unicondylar Arthroplasty Left Keon Schultz MD Meds Allergies and Home Medications Allergies Allergy/AdvReac Type Severity Reaction Status Date / Time Sulfa (Sulfonamide Allergy Mild Hives Verified 08/02/22 06:11 Antibiotics) Home Medication Medication Instructions Recorded multivitamin (Daily Multi-Vitamin 1 ea PO DIRECTED 02/09/13 tablet) glucosamine 467 mg-chondroitin msm 1 ea PO DAILY 02/20/16 no.6 438 mg-manganes 0.7 mg capsule atenolol 50 mg tablet See Rx Instructions .Route 12/25/21 .COMPLEX #90 tabs omeprazole 20 mg capsule,delayed See Rx Instructions .Route 12/25/21 release .COMPLEX #90 caps mv-min-vit C 1,000 1 tab PO DAILY 04/10/22 xa-zchtbdvvh-gulwtj-herb 124 50 mg efferves tablet (Airborne) indapamide 2.5 mg tablet 5 mg PO QAM #180 tabs 04/11/22 losartan 100 mg tablet See Rx Instructions .Route 04/12/22 .COMPLEX #90 tabs blood-glucose meter (OneTouch #1 ea 04/30/22 Verio Meter) blood sugar diagnostic (OneTouch #100 ea 05/30/22 Verio test strips) lancets 33 gauge (OneTouch Delica #100 ea 05/31/22 Lancets) metformin 500 mg tablet 500 mg PO BID #120 tabs 07/25/22 aspirin 81 mg tablet,delayed 81 mg PO BID Prevent blood clot 30 08/02/22 release days #60 tabs cholecalciferol (vitamin D3) 25 1 PO DAILY 08/02/22 mcg (1,000 unit) tablet naproxen 250 mg tablet 250 - 500 mg PO BID PRN #40 tabs 08/02/22 oxycodone 5 mg tablet 5 - 10 mg PO Q4H PRN moderate to 08/02/22 severe pain #18 tabs Current Visit Medications: Current Medications Generic Name Dose Route Start Last Admin Trade Name Freq PRN Reason Stop Dose Admin Ringer's Solution 1,000 mls @ 30 mls/hr 08/02/22 06:00 IV 08/31/22 23:59 INFUSION IVIS Cefazolin Sodium 3,000 mg/ 100 mls @ 200 mls/hr 08/02/22 06:00 Sodium Chloride IVPB 08/02/22 16:00 PREOP IVIS Tranexamic Acid 1,000 mg/ 60 mls @ 360 mls/hr 08/02/22 06:00 Sodium Chloride IVPB 08/02/22 16:00 PREOP IVIS IV Miscellaneous Supplies 1 each 08/02/22 06:00 Iv Access IV 08/31/22 23:59 DIRECTED IVIS Sodium Chloride 0 ml 08/02/22 06:00 Normal Saline Flush 10 Ml Syr IV 08/31/22 23:59 PRN PRN Sodium Chloride 0 ml 08/02/22 06:00 Normal Saline 10 Ml Vial IJ 08/31/22 23:59 DIRECTED PRN Sterile Water 0 ml 08/02/22 06:00 Water,Injection,Sterile 10 Ml Vial IJ 08/31/22 23:59 DIRECTED PRN PFSH Active Problems Active Problems: Problem Status Onset Code No-show for appointment Z53.29 SARS-CoV-2 positive ~01/26/22 U07.1 Nuclear cataract of both eyes Obesity E66.9 Type 2 diabetes mellitus E11.9 Blood chemistry abnormality R79.9 S/P BSO (status post bilateral salpingo-oophorectomy) Z90.722 S/P laparoscopic assisted vaginal hysterectomy (LAVH) Z90.710 Primary osteoarthritis of left knee M17.12 Hypokalemia E87.6 Obstructive sleep apnea (adult) (pediatric) 03/04/13 G47.33 Essential hypertension I10 Migraine, unspecified, not intractable, without status migrainosus 05/13/13 G43.909 Post-menopausal bleeding 08/30/17 N95.0 Keratosis seborrheica L82.1 Kidney stone 03/26/12 N20.0 Hyperlipidemia 05/13/13 E78.5 Diffuse cystic mastopathy 03/26/12 N60.19 Chronic rhinitis 03/26/12 J31.0 Medical History Medical History Essential hypertension (05/14/13) Other and unspecified hyperlipidemia (05/13/13) PCEq risk 6% Surgical History Surgical History History of arthroscopic knee surgery History of surgery D&C Tobacco Smoking/Tobacco Use Status: Never Alcohol Alcohol Intake: current Alcohol intake frequency: a few times a month Alcohol type: beer and wine Substance Use Substance use: Never Substance use type: does not use Prental History History 3 Para 2 Hx # Term Pregnancies 2 Multiple births Hx # Pregnancies Ectopic pregnancies AB induced Hx Number of Living Children 2 AB spontaneous Vital Signs and Lab Results Vital Signs Most Recent Vital Signs in EMR: Temp Pulse Resp BP Pulse Ox 36.3 C L 55 L 16 148/76 H 96 08/02/22 06:18 08/02/22 06:18 08/02/22 06:18 08/02/22 06:18 08/02/22 06:18 Lab Results Blood Type / Crossmatch: No Data to Display Complete Blood Count: No Data to Display Complete Metabolic Panel: Hemoglobin A1c 6.4 % (4.5-5.7) H 07/17/22 15:12 Liver Function Panel: No Data to Display Coagulation Panel: No Data to Display Cardiac Panel: No Data to Display Arterial Blood Gas: No Data to Display Venous Blood Gas: No Data to Display Pancreas Panel: No Data to Display Thyroid Panel: No Data to Display Infectious Disease: No Data to Display Blood Cultures: No Data to Display Toxicology Panel: No Data to Display Anesthesia Assessment and Plan Anesthesia History Personal History: No History of Anesthesia Complications Family History: No Family History of Anesthesia Complications Exercise Tolerance Exercise Tolerance: Metabolic Equivalents>4 Cardiac & Pulmonary Exam Cardiac Exam: Normal S1/S2 Heart Sounds Pulmonary Exam: Clear Bilateral Breath Sounds Implantable Cardiac Device Does patient have a Pacemaker or an ICD?: No Airway Exam Known Difficult Airway: No Mallampati Class: 3 Mouth Opening: Normal (> 3cm) Thyromental Distance: Greater than 3 cm Neck Range of Motion: Full ROM Neck Circumference: Thick Teeth Condition: Normal Dentition ASA Classification ASA Score: ASA 2 Emergency Case?: No NPO Status NPO Status: NPO Clears >2 hours, Solids >8 hours Anesthesia Plan Resuscitation Status: Full Code Anesthesia Technique: Spinal Anesthesia Airway Planned: Natural Airway Pain Management: Surgeon and patient request nerve block Monitors Used: Standard Monitors Preoperative Comments:: 67 yo female for partial knee sig PMHx: DM2 (metformin, last A1c 6.4 07/17/22), KAHLIL, HTN (atenolol, indapamide, losartan), migraine, never smoker, occ EtOH, Previous Anes: - hysterectomy with aborted spinal after 2 attempts, glide 3 grade 1, no mask ventilation. - colo with prop/no airway without issues. Discussed risk, benifits and alternitives of spinal vs GA with adductor canal block. She is willing and would like to try a spinal and understands that we can stop and perform a GA at any point. We discussed the nerve block and that block failure, nerve injury (temp and permanant) can occour.
[2022-08-02] VITALS (13 sets, daily range): BP systolic 105–148; BP diastolic 38–76; PULSE 54–59; RESP 14–20; TEMP 36–36.6; O2SAT 94–98; BMI 37.4
--- NOTE | 2022-08-02 06:45 | DI.RAD_ITS ---
Exam(s) XR KNEE LT 2V AP,LAT EXAM: XR KNEE LT 2V AP,LAT CLINICAL HISTORY: Portable in PACU postop TECHNIQUE: COMPARISON: CR XR KNEE LT 1V from 04/10/2022 FINDINGS: Two views were obtained. There is a medial hemiarthroplasty. Components appear well seated. No oth er significant bony abnormality seen. IMPRESSION: RADIATION DOSE DELIVERED: Total DLP
[2022-08-02] MEDS: Lactated Ringers 1,000 ML 30 ML IV (07:01)
[2022-08-02] MEDS: ceFAZolin 3,000 MG in Normal Saline 100 ML 200 MG IVPB (07:48)
--- NOTE | 2022-08-02 08:00 | ROE_ITS ---
Operative Note Operative Note DATE OF PROCEDURE: 08/02/22 PRE-OP DIAGNOSIS: Left knee medial compartmental arthritis POST-OP DIAGNOSIS: same PROCEDURE: Left knee medial unicompartmental arthroplasty, CPT # 31211 The delinquent tax collection assistant was medically required as this procedure involves retraction, protection of neurovascular structures, and manipulation of multiple instruments and implants at the same time, which cannot be done without a skilled delinquent tax collection assistant. SURGEON: Keon Schultz BUNDLE CLERK: Jacquelyn Walden ANESTHESIA TYPE: Local By Surgeon, General LMA/ETT and Primary Nerve Block Refer to Anesthesia Record ESTIMATED BLOOD LOSS: 75 TOURNIQUET TIME: 0 COMPLICATIONS: None Patient was transported to: PACU Patient's condition: stable Implants: De[employer] Sigma HP partial knee size 2 metal-backed tibial tray, 7 mm tibial insert fixed bearing, size 3 femoral component Indications: Please see complete medical record for details. Findings: Isolated medial compartment arthritis Procedure Description: The patient was taken to the operating room and transferred to the operating room table. Spinal anesthesia was induced. All bony prominences were well- padded. Preoperative antibiotics and 1 g TXA were administered. A tourniquet was placed loosely over padding high on the patient's thigh. The knee and lower extremity were prepped and draped in the usual sterile fashion. The correct patient, procedure, and side of the procedure were all verified prior to incision. A slightly medial of midline longitudinal approach was used to the knee extending from the superior pole the patella to the distal aspect of the tibial tubercle. The quadriceps tendon, patella borders, and patellar tendon were exposed. A full-thickness arthrotomy was performed starting splitting the quadriceps tendon and leaving a sleeve of tissue on the medial aspect of the patella and taking care to progress along the medial margin the patellar tendon. The MCL was elevated off the proximal medial tibia. The tibial alignment jig was set in place on the anterior medial aspect of the tibia and carefully adjusted to achieve proper alignment in the coronal and sagittal planes. Reciprocating saw was used to create the vertical cut at the medial aspect of the medial tibial eminence taking care to protect the ACL ligament footprint. The transverse cut was then done using the microsagittal saw through the jig taking care to retract and protect the MCL. The bone piece and cut were inspected and found to be appropriate for patient anatomy. A box rasp was used to clean up the cut especially the L component. The 7 mm spacer block was inserted and found to have good equal stability in full extension and 90 degrees of flexion with approximately 2 mm of joint space opening in 20-30 degrees of flexion. With the knee in extension, the tibial trial spacer block was used to bryn the rotational alignment and anterior extent of the femoral component. The spacer block was removed and the tibia was sized with the depth gauge. The distal femoral cutting block was inserted taking care to orient it appropriately. The cut was done using the saw through the guide. The guide was removed, and the femur was sized with the femoral sizing blocks. The appropriate sized cutting jig was selected. Care was taken to ensure the block was flush with the resected distal femur bone surface. A curved gouge was used to cut the profile of the proximal tip of the femoral prosthesis, bryn the extent of the anterior chamfer cut, and prevent trochlear cartilage delamination. The posterior cut was done through the jig, the anterior cut was done using the osteotomes, the posterior chamfer cut was done through the jig, and the drill was used to drill the 2 peg holes. The cutting block and bone cuts were removed. The medial meniscus remnant was removed. The femoral component trial was placed in the distal femur and the 7 mm spacer block confirmed appropriate balancing in flexion, extension, and again 2 mm of medial joint space opening in 20-30 degrees of flexion. Tibial template was inserted and the size confirmed to be appropriate. The keel was used by hand to remove bone from the slot and the tibial peg drill was used in the peg hole. The pulse lavage was used to clean the bone surfaces. SmartSet medium viscosity cement was prepared. At the appropriate time during the early working phase, the cement was applied to the backside of the tibial and femoral components. Then, cement was carefully placed and pressurized into the proximal tibia taking care to only have minimal cement posteriorly. The tibial component was inserted at an angle and then impacted directing pressure from posterior to anterior to keep the flow of cement from posterior to anterior. Cement was then applied to the distal femur and the femoral component impacted. Excess cement was removed. The knee was brought into full extension and this position with axial load was maintained until the cement was completely hardened at 18 minutes. A com bination R.E.C.K. (123 mg Ropivacaine, 0.25 mg Epinephrine, 0.04 mg Clonidine, and 15 mg Ketorolac) 50 ml injection was widely infiltrated about the knee. The wound was copiously irrigated with the pulse lavage and Surgiphor. Tibial tray rate inserter was removed, and the final tibial insert was inserted and clicked into place. The knee was tested through range of motion found to be stable with equal balancing from full extension to flexion past 90 degrees and a couple millimeters of medial joint space opening in 20-30 degrees of flexion. Appropriate hemostasis was achieved. The capsule was approximated using #1 Vicryl in a figure-of-8 interrupted fashion and then closed using Stratafix #1 PDS barbed suture in a running fashion. The superficial layers were irrigated. Subcutaneous tissue was closed using 2-0 Monocryl in a buried interrupted fashion. Skin was closed using 3-0 Monocryl in a buried subcuticular fashion. The skin incision was glued and then covered with a Mepilex Ag dressing. An Rajeev wrap was applied from the foot up to the thigh. The patient awoke from anesthesia without complication was transferred to the recovery room in stable condition.
--- NOTE | 2022-08-02 08:39 | W.ANESNERVE ---
Nerve Block Single Injection Procedure Date and Time Date Performed: 08/02/22 Procedure Start: 07:15 Location Where Procedure Performed Procedure Location: Day Surgery Unit Reason Performed: Postoperative Analgesia Requesting Provider: Keon Schultz Timeout Performed Timeout Performed: Yes Monitoring Used ECG, Blood Pressure and SpO2 Sterility Sterility: Hand Hygiene, Surgical Cap, Surgical Mask, Sterile Gloves and Chlorhexidine Sedation Given During Procedure Sedation Given (Indicate Dose Given): Versed IV Dose:: 2 mg Patient Mental Status Patient Mental Status: Sedate with meaningful communication Nerve Block 1st Nerve Block: Laterality: Left Block Type: Adductor Canal Needle / Catheter Used: 100mm SonoPlex II Local Anesthetic Bolus (Indicate Dose Given): Lidocaine used for local infiltration of skin, Injected in 3-5ml increments after negative blood aspiration and Bupivacaine 0.375% Dose:: 10 mL Additives (Indicate Dose Given): Precedex Dose:: 50 mcg Ultrasound: Sterile probe cover and gel used Ultrasound Image Saved?: Yes Nerve Stimulator: Supplement to Ultrasound use and No twitch or parasthesia noted < 0.5 mA Paresthesia: None Procedure Tolerated: No Complications Procedure Outcome: Successful Performed By: Bettie Akers Supervised By: Julio Cesar Garcia
--- NOTE | 2022-08-02 10:59 | W.ANESPOSTOP ---
Postoperative Evaluation Vital Signs Most Recent Imported Vital Signs: Most Recent Vital Signs Temp Pulse Resp BP Pulse Ox 36.5 C 55 L 18 121/60 96 08/02/22 07:22 08/02/22 07:22 08/02/22 07:22 08/02/22 07:22 08/02/22 07:22 Pain Score Most Recent Pain Score: Most Recent Pain Score Pain Level 0 08/02/22 07:22
--- NOTE | 2022-08-02 11:07 | W.ANESPOSTOP ---
Postoperative Evaluation Date, Time and Location Date Performed: 08/02/22 Time Performed: 11:07 Patient Location: PACU Vital Signs Most Recent Imported Vital Signs: Most Recent Vital Signs Temp Pulse Resp BP Pulse Ox 36.0 C L 57 L 17 128/58 L 96 08/02/22 10:45 08/02/22 10:55 08/02/22 10:55 08/02/22 10:55 08/02/22 10:55 Pain Score Most Recent Pain Score: Most Recent Pain Score Pain Level 0 08/02/22 10:55 Assessment Mental Status: Awake (Alert & Oriented to Patient Baseline) Airway and Respiratory Function: Patent airway with normal (patient baseline) respiratory exam Cardiovascular Function: Hemodynamically Stable Hydration Status: Adequately Hydrated Nausea & Vomiting: No Nausea or Vomiting Pain: Other (spinal still in slight effect, left side very slightly more weak than right. ) Peripheral Nerve Block: Regional nerve block not resolved at time of post operative discharge
[2022-08-02] MEDS: Normal Saline 10 ML VIAL IJ (11:17)
[2022-08-02] MEDS: HYDROmorphone 2 MG/ML SYR IVP (11:17)
--- NOTE | 2022-08-02 12:12 | PDOC.DSDIS_ITS ---
Discharge Plan Disposition Patient Disposition: HOME Condition: Stable Discharge Details Reason For Visit: Left knee surgery Attending Provider: Keon Schultz Primary Care Provider: Jaclyn Tejeda Home Meds and New Rx's Prescriptions: New aspirin 81 mg tablet,delayed release (DR/EC) 81 mg PO BID 30 Days Qty: 60 0RF naproxen 250 mg tablet 250 - 500 mg PO BID PRNQty: 40 0RF Rx Instructions: take with a meal oxycodone 5 mg tablet 5 - 10 mg PO Q4H MDD 30 mg PRN (Reason: moderate to severe pain) Qty: 18 0RF Continued Airborne (lysine HCl) 1,000-50 mg tablet, effervescent 1 tab PO DAILY indapamide 2.5 mg tablet 5 mg PO QAM Qty: 180 3RF (DME) lancets [OneTouch Delica Lancets] 33 gauge [facility] [place] See Rx Instructions .Route Qty: 100 6RF Rx Instructions: As directed BID, e11.9 multivitamin [Daily Multi-Vitamin] 1 EACH tablet 1 ea PO DIRECTED glucosam-chondr msm6-manganese 1 EACH capsule 1 ea PO DAILY atenolol 50 mg tablet See Rx Instructions .ROUTE .COMPLEX Qty: 90 3RF Dose Instruction: TAKE 1 TABLET BY MOUTH DAILY Rx Instructions: TAKE 1 TABLET BY MOUTH DAILY omeprazole 20 mg capsule,delayed release(DR/EC) See Rx Instructions .ROUTE .COMPLEX Qty: 90 3RF Dose Instruction: TAKE 1 CAPSULE BY MOUTH DAILY Rx Instructions: TAKE 1 CAPSULE BY MOUTH DAILY losartan 100 mg tablet See Rx Instructions .ROUTE .COMPLEX Qty: 90 3RF Dose Instruction: TAKE 1 TABLET BY MOUTH DAILY Rx Instructions: TAKE 1 TABLET BY MOUTH DAILY (DME) blood-glucose meter [OneTouch Verio Meter] [facility] [place] See Rx Instructions .Route Qty: 1 0RF Rx Instructions: As directed (DME) OneTouch Verio test strips Strip See Rx Instructions .Route Qty: 100 6RF Rx Instructions: Test daily and BID, keep A1c under 7. e11.9 metformin 500 mg tablet 500 mg PO BID Qty: 120 6RF Rx Instructions: CORRECTED cholecalciferol (vitamin D3) 25 mcg (1,000 unit) Tablet 1 PO DAILY Discontinued ibuprofen 600 mg tablet 600 mg PO Q6H PRN Label Comments: Dr Wright aspirin [Aspir-81] 81 mg Tablet,Delayed Release (Dr/Ec) 81 mg PO DAILY Discharge Instructions Additional Instructions: Surgery: Left medial unicondylar knee replacement Activity: Weightbearing as tolerated. Recommend elevation to minimize swelling and discomfort. Walk as comfort allows. May use crutches or walker as needed for a few weeks. It is important to restore full knee extension as soon as possible. Gently progress knee flexion over the next few weeks. Do not rest with pillows behind knee to prevent knee from getting stuck bent. A physical therapy prescription will be sent electronically to begin in 2-3 weeks. Prescriptions: Aspirin 81 mg take 1 twice a day to prevent a blood clot 30 days Naproxen 250 mg take 1-2 every 12 hours with a meal as needed for moderate pain Oxycodone 5 mg take 1-2 every 4-6 hours as needed for severe pain You may use czbq-aej-ymirwvk Tylenol (acetaminophen) as needed for mild pain. These pain medications may be taken all at once or in different combinations as needed. Also, recommend Colace (docusate) as a stool softener as surgery and pain medicine cause constipation. You may try qrvg-zqr-dyllbie diphenhydramine (Benadryl) 25-50 mg nightly as a sleep aid Dressings: Leave Band-Aid in place until follow-up. Keep clean and dry at all times. May remove Rajeev wrap tomorrow. May re-wrap with Rajeev wrap to help control swelling as needed. Follow-up: 10-[address] Schultz You may take off the leg compression Rajeev wrap and stockings tomorrow at home. You may also leave them on a few days longer if you have a history of leg swelling or edema. Let us know right away if you develop any redness, drainage, fevers, chest pain, or trouble breathing. Do not drink alcohol or drive for at least 24 hours after anesthesia. Please call the office during business hours with any questions or concerns. Discharge Orders Discharge Orders: Discharge Order (Routine); Ordered 08/02/22 Ordered By: Keon Schultz
[2022-08-02] MEDS: ceFAZolin 1 GM/50 ML BAG IVPB (12:22)
== END 2022-08-02 13:36 | disposition home or self-care (01) ==
PROVIDERS: PCP Nurse Practitioner; Visit Provider Student in an Organized Health Care Education/Training Program
PROC: (CPT 27446; principal; 2022-08-02 07:30)
DX: M17.12 Unilateral primary osteoarthritis, left knee (principal); E11.9 Type 2 diabetes mellitus without complications; G47.33 Obstructive sleep apnea (adult) (pediatric)
CPT/HCPCS: 27446; C1776; 76942; 99213; 73560; J0690; J1100; J1170; J2250; J2405; J2704

== ENCOUNTER 2022-08-15 15:07 | Outpatient (CLI) | payer MEDICARE, SELFPAY ==
--- NOTE | 2022-08-15 15:00 | DI.RAD_ITS ---
Exam(s) XR KNEE LT 2V AP,LAT EXAM: XR KNEE LT 2V AP,LAT INDICATION: left knee pain. COMPARISON: CR XR KNEE LT 2V AP,LAT from 08/02/2022 TECHNIQUE: 2D digital imaging was performed. Two views. FINDINGS: There has been no change in the alignment of the medial femoral tibial joint space prosthesis. No ab normal bony lucencies are seen. DATA REPOSITORY: RADIATION DOSE DELIVERED:
== END 2022-08-15 15:08 | disposition home or self-care (01) ==
LOC: DIORS 15:07
PROVIDERS: PCP Nurse Practitioner; Referring Provider Nurse Practitioner; Visit Provider Student in an Organized Health Care Education/Training Program
DX: M17.12 Unilateral primary osteoarthritis, left knee; Z47.89 Encounter for other orthopedic aftercare
CPT/HCPCS: 73560

== ENCOUNTER 2022-10-03 14:38 | Outpatient (CLI) | payer MEDICARE, SELFPAY ==
--- NOTE | 2022-10-03 14:15 | DI.RAD_ITS ---
Exam(s) XR KNEE LT 2V AP,LAT EXAM: XR KNEE LT 2V AP,LAT CLINICAL HISTORY: left knee pain. TECHNIQUE: 2D digital imaging was performed. COMPARISON: CR XR KNEE LT 2V AP,LAT from 08/15/2022 FINDINGS: Two views: There is stable position and alignment of the components of the medial hemiarthroplasty. No fracture or loosening evident. The lateral compartment of the knee maintains normal height. IMPRESSION: Stable satisfactory appearance. DATA REPOSITORY: RADIATION DOSE DELIVERED:
== END 2022-10-03 14:39 | disposition home or self-care (01) ==
LOC: DIORS 14:39
PROVIDERS: PCP Nurse Practitioner; Referring Provider Nurse Practitioner; Visit Provider Student in an Organized Health Care Education/Training Program
DX: Z47.1 Aftercare following joint replacement surgery (principal); Z96.652 Presence of left artificial knee joint
CPT/HCPCS: 73560

== ENCOUNTER 2022-11-27 14:06 | Outpatient (CLI) | payer MEDICARE, SELFPAY ==
--- NOTE | 2022-11-27 13:30 | DI.RAD_ITS ---
Exam(s) XR KNEE LT 3V AP,LAT,ALONSO EXAM: XR KNEE LT 3V AP,LAT,ALONSO CLINICAL HISTORY: left knee f/u. TECHNIQUE: 2D digital imaging was performed. COMPARISON: CR XR KNEE LT 2V AP,LAT from 10/03/2022 FINDINGS: 3 views There is continued stable appearance of the components of the medial hemiarthroplasty. No fracture o r loosening evident. The lateral compartment height is maintained. IMPRESSION: Stable appearance. DATA REPOSITORY: RADIATION DOSE DELIVERED:
== END 2022-11-27 14:07 | disposition home or self-care (01) ==
LOC: DIORS 14:06
PROVIDERS: PCP Nurse Practitioner; Referring Provider Nurse Practitioner; Visit Provider Student in an Organized Health Care Education/Training Program
DX: Z96.652 Presence of left artificial knee joint
CPT/HCPCS: 73562; 99213

== ENCOUNTER 2023-02-21 01:09 | Outpatient (CLI) | payer MEDICARE, SELFPAY ==
--- NOTE | 2023-02-21 08:00 | DI.DEXA_ITS ---
Exam(s) XR DEXA BONE DENSITY W/WO JHONNY EXAM: XR DEXA BONE DENSITY W/WO JHONNY CLINICAL HISTORY: screening for osteoporosis in postmenopausal woman,z78.0 TECHNIQUE: Routine DEXA evaluation of the lumbar spine, hip, or forearm. COMPARISON: No exams were available for comparison FINDINGS: Performed on a Hologic unit. Lateral image: No compression fracture evident. Lumbar Spine total T-score: 6.5 Hip total T-score:3.1 Independent reading at the level of the femoral neck yields T-score of 0.3 Forearm total T-score: 1.0 IMPRESSION: Bone mineral density measures in the normal range. Fracture risk is low. Note: Any spine fracture indicates 5x risk for subsequent spine fracture and 2x risk for subsequent h ip fracture. World Health Organization criteria for BMD interpretation classify patients: Normal...... T- Score at or above -1.0 Osteopenic... T- Score between -1.0 and -2.5 Osteoporosis... T-Score at or below -2.5
--- NOTE | 2023-02-21 08:00 | DI.MAMMO_ITS ---
Exam(s) MAMMO SCREENING EXAM: MAMMO SCREENING CLINICAL HISTORY: screening,z12.39. TECHNIQUE: Bilateral full field digital CC and MLO mammographic images were obtained with 3D tomosyn thesis and utilizing computer aided detection (CAD). COMPARISON: Prior mammograms were reviewed. FINDINGS: There has been no significant change in the appearance and distribution of the fibroglandular tissue. One of the skin moles left breast has increased in size, this located inferomedially. There are no new spiculated masses nor malignant appearing microcalcification groups in either breast .. Small benign-appearing group of microcalcifications in the right breast is unchanged. There is no significant architectural distortion nor skin thickening-retraction. IMPRESSION: No radiographic evidence of malignancy. Please note that 1 of the skin moles on the left breast has increased in size. Physical examination of this skin finding is recommended. BI-RADS Category 2 - Benign Findings Breast Density - Category B - Scattered areas of fibroglandular density Breast density Category C or D implies that the patient has dense breast tissue. Dense breast tissue can make it harder to find cancer on a mammogram. Dense breast tissue is also associated with an incr eased risk of breast cancer. This information about the result of the mammogram report was provided to the patient to raise their awareness. Use this report when you speak with the patient about their risks for breast cancer, which includes their family history. At that time, you may recommend additional screening tests (Ultrasoun d or MRI) as these tests may add significant information. A negative radiographic report should not delay biopsy if a dominant or clinically suspicious mass is present. Up to ten percent of cancers are not identified on mammography. A negative report may reinforce clinical impression. Adenosis and dense breasts may obscure an underlying neoplasm. False positive reports average 6 to 10%. Patient will receive a letter notifying them of these results.
== END 2023-02-21 01:29 ==
LOC: DI 01:09
PROVIDERS: PCP Nurse Practitioner; Visit Provider Nurse Practitioner
DX: Z78.0 Asymptomatic menopausal state (principal); Z12.31 Encounter for screening mammogram for malignant neoplasm of breast
CPT/HCPCS: 77063; 77067; 77080

== ENCOUNTER 2023-07-24 15:44 | Outpatient (CLI) | payer MEDICARE, SELFPAY ==
--- NOTE | 2023-07-24 13:15 | DI.RAD_ITS ---
Exam(s) XR KNEE LT 2V AP,LAT EXAM: XR KNEE LT 2V AP,LAT INDICATION: LEFT KNEE F/U. COMPARISON: CR XR KNEE LT 3V AP,LAT,ALONSO from 11/27/2022 TECHNIQUE: 2D digital imaging was performed. Two views. FINDINGS: There has been no change in the alignment of the medial femoral tibial joint space prosthesis. There are no abnormal surrounding bony lucencies. Mild degenerative changes are present at the patellofem oral joint. Coarse calcification again noted in the posterior soft tissues of the lower thigh. Impression: No acute abnormality. Stable appearance of knee prosthesis. DATA REPOSITORY: RADIATION DOSE DELIVERED:
== END 2023-07-24 15:45 | disposition home or self-care (01) ==
LOC: DIORS 15:44
PROVIDERS: PCP Nurse Practitioner; Referring Provider Nurse Practitioner; Visit Provider Student in an Organized Health Care Education/Training Program
DX: Z47.1 Aftercare following joint replacement surgery; Z96.652 Presence of left artificial knee joint; M17.12 Unilateral primary osteoarthritis, left knee
CPT/HCPCS: 99213; 73560

== ENCOUNTER 2023-10-22 02:51 | Outpatient (CLI) | payer MEDICARE, SELFPAY ==
[2023-10-22 09:18] LABS: HCT 41.6 % (36.0-46.0); HGB 13.6 g/dL (11.2-15.7); MCH 29.5 pg (27.0-33.0); MCHC 32.7 % (32.0-36.0); MCV 90 fL (80-95); MPV 9.2 fL (8.0-11.0); Platelet Count 250 10^3/uL (130-400); RBC 4.61 10^6/uL (3.93-5.22); RDW 13.2 % (11.7-14.6); RDW-SD 43.3 fL; WBC 6.27 10^3/uL (4.4-10.8)
[2023-10-22 09:37] LABS: ALT 25 U/L (14-59); AST 15 U/L (15-37); Albumin 3.5 g/dL (3.4-5.0); Alkaline Phosphatase 96 U/L (46-116); Anion Gap 8.6 mmol/L (3-11); BUN 24 mg/dL (7-18); Bilirubin, Total 0.4 mg/dL (0.2-1.0); CO2 32.4 mmol/L (21.0-32.0); CREATININE 1.1 mg/dL (0.55-1.02); Calcium 9.2 mg/dL (8.5-10.1); Calculated LDL 172 mg/dL (<100); Chloride 101 mmol/L (98-107); Cholesterol 253 mg/dL (<200); Estimated GFR 54.39 (mL/min/1.73m2); Glucose 104 mg/dL (74-106); HDL Cholesterol 61 mg/dL (40-60); Potassium 3.1 mmol/L (3.5-5.1); Sodium 142 mmol/L (136-145); Triglyceride 104 mg/dL (<150)
== END 2023-10-22 02:52 | disposition home or self-care (01) ==
LOC: LBO 02:52
PROVIDERS: PCP Nurse Practitioner; Visit Provider Nurse Practitioner
DX: E11.9 Type 2 diabetes mellitus without complications (principal); E78.5 Hyperlipidemia, unspecified; I10 Essential (primary) hypertension; N20.0 Calculus of kidney
CPT/HCPCS: 36415; 80053; 80061; 85027

== ENCOUNTER 2024-05-19 02:38 | Outpatient (CLI) | payer MEDICARE, SELFPAY ==
[2024-05-19 10:02] LABS: ALT 21 U/L (14-59); AST 20 U/L (15-37); Albumin 3.9 g/dL (3.4-5.0); Alkaline Phosphatase 115 U/L (46-116); Anion Gap 7.5 mmol/L (3-11); BUN 22 mg/dL (7-18); Bilirubin, Total 0.37 mg/dL (0.2-1.0); CO2 32.5 mmol/L (21.0-32.0); Calcium 9.5 mg/dL (8.5-10.1); Calculated LDL 75 mg/dL (<100); Chloride 103 mmol/L (98-107); Cholesterol 156 mg/dL (<200); Estimated GFR 60.61 (mL/min/1.73m2); Glucose 97 mg/dL (74-106); HDL Cholesterol 61 mg/dL (40-60); Potassium 3.6 mmol/L (3.5-5.1); Sodium 143 mmol/L (136-145); Total Protein 8.2 g/dL (6.4-8.2); Triglyceride 102 mg/dL (<150)
== END 2024-05-19 02:39 | disposition home or self-care (01) ==
LOC: LBO 02:38
PROVIDERS: Absent Provider Nurse Practitioner; PCP Nurse Practitioner; Visit Provider Nurse Practitioner
DX: E11.9 Type 2 diabetes mellitus without complications (principal); I10 Essential (primary) hypertension; E78.5 Hyperlipidemia, unspecified
CPT/HCPCS: 36415; 80053; 80061

== ENCOUNTER 2025-01-07 01:13 | Outpatient (CLI) | payer MEDICARE, SELFPAY ==
--- NOTE | 2025-01-07 08:00 | DI.MAMMO_ITS ---
Exam(s) MAMMO SCREENING EXAM: MAMMO SCREENING CLINICAL HISTORY: screening,z12.39. TECHNIQUE: Bilateral full field digital CC and MLO mammographic images were obtained with 3D tomosyn thesis and utilizing computer aided detection (CAD). COMPARISON: Prior mammograms were reviewed. FINDINGS: There has been no significant change in the appearance and distribution of the fibroglandular tissue. The previously described left breast mole is no longer seen and is presumed to have been removed. There are no new spiculated masses nor new malignant appearing microcalcification groups. Benign-appearing small microcalcification group in the right breast remains unchanged. There is no significant architectural distortion nor skin thickening-retraction. IMPRESSION: No radiographic evidence of malignancy. BI-RADS Category 1 - Negative Breast Density - Category B - Scattered areas of fibroglandular density Breast density Category C or D implies that the patient has dense breast tissue. Dense breast tissue can make it harder to find cancer on a mammogram. Dense breast tissue is also associated with an incr eased risk of breast cancer. This information about the result of the mammogram report was provided to the patient to raise their awareness. Use this report when you speak with the patient about their risks for breast cancer, which includes their family history. At that time, you may recommend additional screening tests (Ultrasoun d or MRI) as these tests may add significant information. A negative radiographic report should not delay biopsy if a dominant or clinically suspicious mass is present. Up to ten percent of cancers are not identified on mammography. A negative report may reinforce clinical impression. Adenosis and dense breasts may obscure an underlying neoplasm. False positive reports average 6 to 10%. Patient will receive a letter notifying them of these results.
== END 2025-01-07 01:33 ==
LOC: DI 01:13
PROVIDERS: PCP Nurse Practitioner; Visit Provider Nurse Practitioner
DX: Z12.31 Encounter for screening mammogram for malignant neoplasm of breast (principal); R92.323 Mammographic fibroglandular density, bilateral breasts
CPT/HCPCS: 77063; 77067

== ENCOUNTER 2025-03-19 02:47 | Emergency (ER) | payer MEDICARE, SELFPAY ==
[2025-03-19 02:50] VITALS: BP 197/86; PULSE 75; RESP 18; TEMP 36.8; O2SAT 100
[2025-03-19 02:56] VITALS: BP 197/86; PULSE 75; RESP 18; TEMP 36.8; O2SAT 100
--- NOTE | 2025-03-19 03:09 | ED.GENADUL_ITS ---
Discharge Plan Disposition Patient Disposition: Home Condition: Stable Discharge Details Clinical Impression: Foreign body in right ear Primary Care Provider: Jaclyn Tejeda ED Provider: Rody West Home Meds and New Rx's Prescriptions: No Action Airborne (lysine HCl) 1,000-50 mg tablet, effervescent 1 tab PO DAILY aspirin 81 mg tablet,delayed release (DR/EC) 81 mg PO DAILY atenolol 50 mg tablet See Rx Instructions .ROUTE .COMPLEX Qty: 90 3RF Dose Instruction: TAKE 1 TABLET BY MOUTH DAILY Rx Instructions: TAKE 1 TABLET BY MOUTH DAILY atorvastatin 40 mg tablet 40 mg PO QPM Qty: 90 3RF (DME) OneTouch Verio test strips Strip See Rx Instructions .Route Qty: 100 6RF Rx Instructions: Test daily and BID, keep A1c under 7. e11.9 indapamide 2.5 mg tablet 5 mg PO QAM Qty: 180 3RF (DME) lancets [OneTouch Delica Plus Lancet] 33 gauge misc See Rx Instructions .ROUTE .COMPLEX Qty: 100 6RF Dose Instruction: DIRECTED TWO TIMES A DAY Rx Instructions: DIRECTED TWO TIMES A DAY losartan 100 mg tablet See Rx Instructions .ROUTE .COMPLEX Qty: 90 3RF Dose Instruction: TAKE 1 TABLET BY MOUTH DAILY Rx Instructions: TAKE 1 TABLET BY MOUTH DAILY metformin 500 mg tablet See Rx Instructions .ROUTE .COMPLEX Qty: 180 3RF Dose Instruction: TAKE ONE TABLET BY MOUTH TWICE A DAY Rx Instructions: TAKE ONE TABLET BY MOUTH TWICE A DAY omeprazole 20 mg capsule,delayed release(DR/EC) See Rx Instructions .ROUTE .COMPLEX Qty: 90 3RF Dose Instruction: TAKE ONE CAPSULE BY MOUTH EVERY DAY Rx Instructions: TAKE ONE CAPSULE BY MOUTH EVERY DAY potassium chloride 10 mEq capsule, extended release 10 meq PO DAILY Qty: 90 3RF multivitamin [Daily Multi-Vitamin] 1 EACH tablet 1 ea PO DIRECTED glucosam-chondr msm6-manganese 1 EACH capsule 1 ea PO DAILY (DME) blood-glucose meter [OneTouch Verio Meter] Mis See Rx Instructions .Route Qty: 1 0RF Rx Instructions: As directed cholecalciferol (vitamin D3) 25 mcg (1,000 unit) Tablet 1 PO DAILY Discharge Instructions Instructions: Foreign Body in Ear (DC) Additional Instructions: You were seen in the emergency department today for evaluation of an insect in your ear. You did indeed have a small beetle type insect in your ear, which was killed and removed in 1 piece. There was no damage to your eardrum, you were started on drops which you should use twice per day for the next 3 to 5 days for any irritation of the external ear canal. You may take Tylenol and ibuprofen as needed for ongoing pain, and please follow-up with your primary care provider in the next few days to discuss this visit and any symptoms that change, worsen, or persist. Thank you for allowing us to be part of your care. HPI General Mode of arrival: ambulatory . Date/Time Provider Initiated Documentation: 03/19/25 02:55 . Limitations to Documentation: no limitations . Information obtained by: patient and old records reviewed . HPI Narrative: This is a 70-year-old female patient with a history of diabetes, KAHLIL, hypertension, presenting for evaluation of a foreign body in the ear. She reports that approximately half an hour ago she started to feel a sensation of something crawling and scratching in her ear, is concerned she got a bug in it. She was in her normal state of health prior to this event. This is an isolated complaint and the patient is otherwise in her normal state of health. No hearing deficits, significant external ear pain. Related Data Home Medications ?Medication ?Instructions ?Recorded ?Confirmed multivitamin (Daily Multi-Vitamin 1 ea PO DIRECTED 02/09/13 10/06/24 tablet) glucosamine 467 mg-chondroitin msm 1 ea PO DAILY 02/20/16 11/25/24 no.6 438 mg-manganes 0.7 mg capsule mv-min-vit C 1,000 1 tab PO DAILY 04/10/22 11/25/24 zv-kagvlppze-yuffen-herb 124 50 mg efferves tablet (Airborne) blood-glucose meter (OneTouch #1 ea 04/30/22 10/06/24 Verio Meter) cholecalciferol (vitamin D3) 25 1 PO DAILY 08/02/22 11/25/24 mcg (1,000 unit) tablet aspirin 81 mg tablet,delayed 81 mg PO DAILY 05/26/24 11/25/24 release atenolol 50 mg tablet See Rx Instructions .Route 11/25/24 11/25/24 .COMPLEX #90 tabs atorvastatin 40 mg tablet 40 mg PO QPM #90 tabs 11/25/24 11/25/24 blood sugar diagnostic (OneTouch #100 ea 11/25/24 11/25/24 Verio test strips) indapamide 2.5 mg tablet 5 mg (2 x 2.5 mg) PO QAM #180 tabs 11/25/24 11/25/24 lancets 33 gauge (OneTouch Delica #100 ea 11/25/24 11/25/24 Plus Lancet) losartan 100 mg tablet See Rx Instructions .Route 11/25/24 11/25/24 .COMPLEX #90 tabs metformin 500 mg tablet See Rx Instructions .Route 11/25/24 11/25/24 .COMPLEX #180 tabs omeprazole 20 mg capsule,delayed See Rx Instructions .Route 11/25/24 11/25/24 release .COMPLEX #90 caps potassium chloride 10 mEq 10 meq PO DAILY #90 caps 11/25/24 11/25/24 capsule,extended release Previous Rx's ?Medication ?Instructions ?Recorded blood-glucose meter (OneTouch #1 ea 04/30/22 Verio Meter) atenolol 50 mg tablet See Rx Instructions .Route 11/25/24 .COMPLEX #90 tabs atorvastatin 40 mg tablet 40 mg PO QPM #90 tabs 11/25/24 blood sugar diagnostic (OneTouch #100 ea 11/25/24 Verio test strips) indapamide 2.5 mg tablet 5 mg (2 x 2.5 mg) PO QAM #180 tabs 11/25/24 lancets 33 gauge (OneTouch Delica #100 ea 11/25/24 Plus Lancet) losartan 100 mg tablet See Rx Instructions .Route 11/25/24 .COMPLEX #90 tabs metformin 500 mg tablet See Rx Instructions .Route 11/25/24 .COMPLEX #180 tabs omeprazole 20 mg capsule,delayed See Rx Instructions .Route 11/25/24 release .COMPLEX #90 caps potassium chloride 10 mEq 10 meq PO DAILY #90 caps 11/25/24 capsule,extended release Allergies Allergy/AdvReac Type Severity Reaction Status Date / Time Sulfa (Sulfonamide Allergy Mild Hives Verified 11/25/24 13:27 Antibiotics) General Stated Complaint: EarProblem SKIP: 4 Exam Narrative Exam Narrative: Gen: Awake and alert, in no apparent distress HEENT: Non-icteric sclera, right ear with normal appearance to the pinna and mastoid process, and approximately 1 cm long beetle appreciated in the right external ear canal. After removal, the TM is noted to be intact, with only very mild erythema of the external ear canal. Neck: Supple Lungs: No apparent respiratory distress, normal respiratory effort. CV: Appears well perfused Abdomen: Non-distended MSK: Moves 4 extremities without apparent limitation in ROM Skin: Visualized skin without rashes, cyanosis. Neuro: Normal Gait, no obvious focal deficits or facial asymmetry. Speaks in full, clear sentences. Psych: Appropriate for situation. Course Vital Signs Vital signs: Vital Signs Temperature 36.8 C 03/19/25 02:50 Pulse 75 03/19/25 02:50 Respiratory Rate 18 03/19/25 02:50 Blood Pressure 197/86 H 03/19/25 02:50 Pulse Oximetry 100 03/19/25 02:50 Temperature 36.8 C 03/19/25 02:56 Temperature Source Oral 03/19/25 02:56 Pulse 75 03/19/25 02:56 Respiratory Rate 18 03/19/25 02:56 Blood Pressure 197/86 H 03/19/25 02:56 Blood Pressure Position Sitting 03/19/25 02:56 Pulse Oximetry 100 03/19/25 02:56 Oxygen Delivery Method Room Air 03/19/25 02:56 Oxygen Flow Rate 0 03/19/25 02:50 Pain Level 0 03/19/25 02:56 Procedure Foreign Body Removal Date of Procedure: 03/19/25. Time of procedure: 03:10 Provider that performed the procedure: Rody West Standard Time Out Performed: No Location of procedure: Ear/right side Foreign Body Suspected: insect. TM intact pre-procedure: yes. If Insect Suspected: ear canal instilled with Lidocaine. Foreign Body Removed: yes. Foreign Body Removal Technique: irrigation and forceps. Tympanic Membrane Intact: Yes. Complications: none. Medical Decision Making This is a 70-year-old female patient presenting for evaluation of an insect in the ear. My differential includes but is not limited to foreign body, TM perforation, otitis externa. Reassuringly, the TM appears to be intact, and the patient is otherwise without evidence on her physical examination for mastoiditis, otitis media, sensorineural hearing loss. The ear canal had 2% lidocaine, 2 mL, instilled to kill the insect. After that time, the insect was removed with forceps under direct visualization. The insect was removed intact, and repeat examination reveals no trauma to the TM. I did provide the patient with ofloxacin for external ear canal irritation. Hearing at baseline after this procedure. At this time, the patient has had a full medical evaluation and is safe for discharge to home. They are hemodynamically stable, ambulatory, and tolerating PO. They are understanding of the follow-up plan and return precautions. They left our facility without incident. Rody West MD Medical Records Medical records reviewed: Yes I reviewed the patient's medical records. Quality:[facility] Health Related Social Needs: No Data to Display PFSH All Active Problems (Updated 03/19/25 @ 03:10 by Rody West MD) Foreign body in right ear (Acute) URI (upper respiratory infection) (Acute) SARS-CoV-2 positive (Acute ~01/26/22) Nuclear cataract of both eyes (Acute) 04/24/21 [place] note Obesity (Chronic) Type 2 diabetes mellitus (Acute) A1c taken in orthopedic office on 07/17/22 was 6.4 Blood chemistry abnormality (Acute) S/P BSO (status post bilateral salpingo-oophorectomy) (Acute) S/P laparoscopic assisted vaginal hysterectomy (LAVH) (Acute) Primary osteoarthritis of left knee (Acute) Injected: 12/28/2019 Hypokalemia (Acute) Obstructive sleep apnea (adult) (pediatric) (Acute 03/04/13) Dr. Rebollar CPAP Essential hypertension (Chronic) Migraine, unspecified, not intractable, without status migrainosus (Chronic 05/13/13) Post-menopausal bleeding (Acute 08/30/17) hsitory of PMB, EM polyps, [place] [facility] [place] [facility] [place]. 2017 EMBx with [facility]. Benign. Keratosis seborrheica (Chronic) Torso and neck, widespread. 10/20/18 Dr Wright Hyperlipidemia (Chronic 05/13/13) PCEq risk 6% Diffuse cystic mastopathy (Chronic 03/26/12) Chronic rhinitis (Chronic 03/26/12) Medical History (Updated 03/19/25 @ 03:10 by Rody West MD) No-show for appointment Other and unspecified hyperlipidemia (05/13/13) PCEq risk 6% Essential hypertension (05/14/13) Surgical History (Updated 10/03/22 @ 15:20 by LURDES Kimble) Status post left partial knee replacement (08/02/22) History of arthroscopic knee surgery History of surgery D&C Family History Mother , heart failure at age 83. Heart disease Neoplasm kidney Father No problems noted. Sister No problems noted. Brother No problems noted. Social History Smoking/Tobacco Use Status: Never Smoking risk assessment performed?: Yes Alcohol Intake: current Alcohol Intake frequency: a few times a month Alcohol type: beer and wine Drug use: Never Substance use type: does not use Caregiver/Support person: Yes (in laws and her mom ) Household members: spouse and other Details: [employer] Housing: house Number of Children: 3 Communication Needs: Corrective Lenses current occupation: works automotive parts advisor - early education Current gender identity: female What type of physical activity do you participate in: bicycling Duration: 30-45 minutes/day Frequency: daily Seatbelt use: always Helmet use: Yes Drive intox or ride w/intox trolley coach driver: No Water heater temp set <120 deg: Yes Working smoke detector in home: Yes Fire extinguisher in home: Yes Carbon monox detector in home: Yes Firearms in home: Yes Firearms unloaded and locked: Yes Do you feel safe at home: Yes Do you feel safe in your relationship?: Yes Victim of physical abuse: No Victim of emotional abuse: No Victim of sexual abuse: No History History 3 Para 2 Hx # Term Pregnancies 2 Multiple births Hx # Pregnancies Ectopic pregnancies AB induced Hx Number of Living Children 2 AB spontaneous
[2025-03-19] MEDS: Lidocaine 2% Multi-Dose 20 ML VIAL IJ (03:11)
[2025-03-19] MEDS: Ofloxacin 0.3% OTIC 5 ML BTL AD (03:27)
== END 2025-03-19 03:31 | disposition home or self-care (01) ==
PROVIDERS: Emergency Provider Emergency Medicine; PCP Nurse Practitioner
DX: T16.1XXA Foreign body in right ear, initial encounter (principal); I10 Essential (primary) hypertension; E78.5 Hyperlipidemia, unspecified; E11.9 Type 2 diabetes mellitus without complications; Z79.82 Long term (current) use of aspirin; Z79.84 Long term (current) use of oral hypoglycemic drugs; W44.F4XA Insect entering into or through a natural orifice, initial encounter; Y93.H2 Activity, gardening and landscaping; Y92.017 Garden or yard in single-family (private) house as the place of occurrence of the external cause
CPT/HCPCS: 69200; 99283; J2003

== ENCOUNTER 2025-07-29 05:21 | Outpatient (CLI) | payer MEDICARE, SELFPAY ==
[2025-07-29 12:52] LABS: Abs Immature Grans 0.00 10^3/uL (0.0-0.06); HCT 41.4 % (36.0-46.0); HGB 13.3 g/dL (11.2-15.7); Immature Grans % 0.0 %; MCH 28.9 pg (27.0-33.0); MCHC 32.1 % (32.0-36.0); MCV 90 fL (80-95); MPV 9.4 fL (8.0-11.0); Platelet Count 253 10^3/uL (130-400); RBC 4.61 10^6/uL (3.93-5.22); RDW 13.2 % (11.7-14.6); RDW-SD 43.0 fL; WBC 5.99 10^3/uL (4.4-10.8)
[2025-07-29 12:56] LABS: Glucose Negative (Negative)
[2025-07-29 13:21] LABS: C & S Indicated? No; RBC 0-2 HPF (0-2); WBC 0-2 HPF (0-5)
[2025-07-29 13:30] LABS: ALT 12 U/L (14-59); AST 21 U/L (15-37); Albumin 3.9 g/dL (3.4-5.0); Alkaline Phosphatase 126 U/L (46-116); Anion Gap 9.3 mmol/L (3-11); BUN 22 mg/dL (7-18); Bilirubin, Total 0.5 mg/dL (0.2-1.0); CO2 30.7 mmol/L (21.0-32.0); Calcium 9.6 mg/dL (8.5-10.1); Calculated LDL 64 mg/dL (<100); Chloride 99 mmol/L (98-107); Cholesterol 149 mg/dL (<200); Estimated GFR 53.72 (mL/min/1.73m2); Glucose 119 mg/dL (74-106); HDL Cholesterol 53 mg/dL (>or=50); Potassium 3.2 mmol/L (3.5-5.1); Sodium 139 mmol/L (136-145); TSH 0.88 uIU/mL (0.36-3.74); Total Protein 8.4 g/dL (6.4-8.2); Triglyceride 163 mg/dL (<150)
[2025-07-29 23:31] LABS: Hepatitis C Ab w Rflx HCV PCR Negative (Negative)
== END 2025-07-29 05:22 | disposition home or self-care (01) ==
LOC: LBO 05:21
PROVIDERS: Family Medicine; PCP Nurse Practitioner; Visit Provider Nurse Practitioner Family
DX: D64.9 Anemia, unspecified (principal); Z13.9 Encounter for screening, unspecified; E78.5 Hyperlipidemia, unspecified; N18.31 Chronic kidney disease, stage 3a; R53.83 Other fatigue; Z11.59 Encounter for screening for other viral diseases
CPT/HCPCS: 36415; 80053; 80061; 86803; 81003; 81015; 84443; 85025